=== PATIENT | female | born 1930 | race Caucasian/White ===

== ENCOUNTER 2017-04-06 10:18 | Emergency (ER) | payer MEDICARE, BC ==
[2017-04-06] MEDS ORDERED: hydrOXYzine 25 MG TAB ONE (11:01)
[2017-04-06 11:20] LABS: Bilirubin Negative (Negative); Blood, Urine Trace (Negative); Glucose, Urine (Dipstick) Negative (Negative); Ketone, Urine Negative (Negative); Nitrite Negative (Negative); Protein, Urine (Dipstick) Negative (Neg-Trace); Urobilinogen 0.2 mg/dL (0.2-1.0)
[2017-04-06 11:25] LABS: Bacteria/HPF 3+ HPF (None Seen); Hyaline Casts/LPF 0-3 HYALINE CAST LPF (0-3 Hyaline); Squamous Epithelial 0-3 HPF (0-3)
--- NOTE | 2017-04-06 14:35 | CT ---
NONCONTRAST HEAD CT: Date: 04/06/17 HISTORY: Fall from standing. Post-traumatic pain. COMPARISON: 02/20/16. TECHNIQUE: Noncontrast head CT is performed from skull base to skull vertex. FINDINGS: No parenchymal hemorrhage or extra-axial hematoma. No midline shift. Basilar cisterns are patent. Age -appropriate atrophy. Stable malacic change in the left frontal lobe. Remainder of the cerebrum demon strates preservation of cortical hough-white matter differentiation. Stable configuration of the ventr icular system. White matter hypodensities due to chronic small vessel ischemic changes are identified . Calvarium is intact. Adequate aeration of the sinuses and mastoid air cells. IMPRESSION: 1. No intracranial post-traumatic sequelae. 2. Stable malacic change I the left frontal lobe. 3. Stable appearance of the ventricular system. The ventricular system is slightly more prominent th an expected for the degree of atrophy. Correlate for normal pressure hydrocephalus. POS: [facility]
--- NOTE | 2017-04-06 14:45 | CT ---
CT CERVICAL SPINE WITHOUT CONTRAST: Date: 04/06/17 HISTORY: Injury. Status post fall. Post-traumatic pain. COMPARISON: None. TECHNIQUE: CT cervical spine is performed without contrast. Reformatted images are submitted for interpretation. FINDINGS: Limited evaluation due to motion degradation. Visualized soft tissue neck structures are grossly unremarkable. No prevertebral soft tissue swelling . Limited evaluation for epidural hematoma. The central spinal canal and neural foramina are grossly patent. Evaluation is limited due to technique. Visualized lung apices demonstrate chronic changes. There is diffuse bone demineralization. There are degenerative changes involving the interarticular f acets throughout the cervical spine. There is evidence of facet hypertrophy. There are degenerative c hanges at the lateral masses of C1 and C2 bilaterally. Odontoid process appears to be intact. No evid ence of a cervical spine fracture. There is diffuse bone demineralization. Grade I anterolisthesis of C4 upon C5 and at C5 upon C6 likely on the basis of degenerative change. C urrent study is not tailored to assess for ligamentous injury. IMPRESSION: 1. 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 2. Diffuse bone demineralization. 3. No evidence of cervical spine fracture. POS: [facility]
== END 2017-04-06 13:29 | disposition home or self-care (01) ==
LOC: ERS 10:18
DX: Z04.3 Encounter for examination and observation following other accident (principal); N39.0 Urinary tract infection, site not specified; G30.9 Alzheimer's disease, unspecified; F02.80 Dementia in other diseases classified elsewhere, unspecified severity, without behavioral disturbance, psychotic disturbance, mood disturbance, and anxiety; Z79.82 Long term (current) use of aspirin; Z79.899 Other long term (current) drug therapy
CPT/HCPCS: 70450; 72125; 81003; 81015; 87077; 87086; 87186

== ENCOUNTER 2017-09-13 11:48 | Emergency (ER) | payer MEDICARE, BC ==
[2017-09-13] MEDS ORDERED: diphenhydrAMINE 50 MG/ML VIAL ONE (12:16)
[2017-09-13 12:19] LABS: #Eosinphils 0.3 thou/uL (0.0-0.7); #Monocytes 0.5 thou/uL (0.11-0.59); #Neutrophils 3.5 thou/uL (1.40-6.50); %Basophils 0.4 % (0.0-1.0); %Eosinophils 5.3 % (0.0-10.0); %Lymphocytes 31.1 % (21.0-51.0); %Monocytes 7.9 % (0.0-10.0); %Neutrophils 55.3 % (42.0-75.0); Mean Corpuscular HGB CONC 33.4 g/dL (32.0-36.0); Mean Corpuscular Hemoglobin 32.6 pg (27.0-31.0); Mean Corpuscular Volume 97.7 fl (81.0-99.0); Mean Platelet Volume 7.2 fL (7.4-10.4); Platelet Count 193 thou/uL (130-400); RBC Distribution Width 13.3 % (11.5-14.5); Red Blood Cell (RBC) Count 3.68 mill/uL (4.20-5.40); White Blood Cell (WBC) Count 6.4 thou/uL (4.8-10.8)
[2017-09-13 12:28] LABS: Bilirubin Negative (Negative); Blood, Urine Negative (Negative); Clarity CLEAR (Clear); Glucose, Urine (Dipstick) Negative (Negative); Leukocyte Moderate (Negative); Nitrite Negative (Negative); Protein, Urine (Dipstick) Negative (Neg-Trace); Urobilinogen 0.2 mg/dL (0.2-1.0)
[2017-09-13 12:31] LABS: Bacteria/HPF 2+ HPF (None Seen); Hyaline Casts/LPF 0-3 HYALINE CAST LPF (0-3 Hyaline); Pathc Cast-AUWi Flag 0.43 (0-2.49); RBC/HPF None Seen HPF (0-3); Squamous Epithelial 0-3 HPF (0-3)
[2017-09-13 12:40] LABS: ALT (SGPT) 10 U/L (8-55); AST (SGOT) 19 U/L (5-34); Albumin 3.9 g/dL (3.4-4.8); Alkaline Phosphatase 105 U/L (40-150); Anion Gap 11 mmol/L (10-20); BUN (Urea Nitrogen) 17 mg/dL (9.8-20.1); Bilirubin, Total 0.4 mg/dL (0.2-1.2); CK (CPK) 101 U/L (29-168); Calc. Creatinine Clearance 0 mL/min (70-130); Calcium 9.2 mg/dL (7.8-10.44); Carbon Dioxide 27 mmol/L (23-31); Chloride 105 mmol/L (98-107); Estimated GFR-MDRD 49; Glucose 84 mg/dL (83-110); Potassium 4.4 mmol/L (3.5-5.1); Protein, Total 6.9 g/dL (6.0-8.3); Sodium 139 mmol/L (136-145)
[2017-09-13 12:43] LABS: CKMB 1.5 ng/mL (0-6.6)
--- NOTE | 2017-09-13 14:37 | CT ---
CT OF BRAIN PERFORMED WITHOUT CONTRAST ENHANCEMENT: Date: 09/13/17 HISTORY: Patient is status post fall. Found on floor in bathroom. COMPARISON: 04/06/17 study. FINDINGS: There is some generalized ventricular and sulcal prominence with encephalomalacia change in the left frontal lobe and chronic white matter change. All of these findings appear stable. Mastoid air cells and visualized sinuses are clear. IMPRESSION: No acute intracranial abnormalities. Stable exam. The ventricular and cisternal system is within normal limits. There are no signs of intracerebral hem orrhage or extra-axial fluid collections. The mastoid air cells and visualized sinuses are clear. IMPRESSION: No acute intracranial abnormalities. POS: [facility]
== END 2017-09-13 14:14 ==
LOC: ERS 11:48
DX: Z04.3 Encounter for examination and observation following other accident (principal); N39.0 Urinary tract infection, site not specified; G30.9 Alzheimer's disease, unspecified; F02.80 Dementia in other diseases classified elsewhere, unspecified severity, without behavioral disturbance, psychotic disturbance, mood disturbance, and anxiety; Z79.82 Long term (current) use of aspirin; Z79.899 Other long term (current) drug therapy; W01.198A Fall on same level from slipping, tripping and stumbling with subsequent striking against other object, initial encounter; Y92.121 Bathroom in nursing home as the place of occurrence of the external cause
CPT/HCPCS: 36415; 51701; 70450; 80053; 81003; 81015; 82550; 82553; 84484; 85025; 93005; 96374; A4353; J1200